=== PATIENT | female | born 1985 | race Caucasian/White ===

== ENCOUNTER 2019-03-27 00:57 | Day surgery (SDC) | payer BC, SELFPAY ==
[2019-03-19 12:09] VITALS: BMI 33.7
[2019-03-27 13:38] VITALS: BP 122/72; PULSE 74; RESP 18; TEMP 36.7; O2SAT 100
[2019-03-27] MEDS: LACTATED RINGERS 1,000 ML 30 ML IV CONT (15:17)
--- NOTE | 2019-03-27 15:58 | WPDANESEPPF ---
Anes - Initial Pre Proc Eval Procedure: Operation Date: 03/27/19 15:30 Proposed Procedures p Debridement Right Breast Wound - Gurpreet Perez MD Date/Time: 03/27/19 15:58 Surgeon: Gurpreet Perez MD Pre Op Diagnosis: Right Breast Chronic Infection Patient Data Age: 33 Gender: F Height: 5 ft 3 in Weight: 83.9 kg Last Vital Signs Temp 36.7 C 03/27/19 13:38 Pulse 74 03/27/19 13:38 Resp 18 03/27/19 13:38 BP 122/72 03/27/19 13:38 Pulse Ox 100 03/27/19 13:38 Allergies Allergy/AdvReac Type Severity Reaction Status Date / Time No Known Allergies Allergy Verified 03/27/19 14:55 Home Medications Medication Instructions Recorded Confirmed Type No Home Medications 02/05/19 03/27/19 History Patient hx anesthesia problems: none Family hx anesthesia problems: none PMFSH Surgical History Surgical History History of right hip replacement 1999, hip plate Family History Family History Unknown Hypertension Allergy Cancer Social History Social History Smoking status: Never smoker Alcohol intake: current Anes - Eval Final PreProcedure Day of Procedure 03/27/19 15:58 Patient weight: obese Heart: regular rate and rhythm Lungs: clear to auscultation Airway: Mallampati scale class 1 Neurological: alert and oriented Last oral intake: >/= 8 hours ASA classification: II Emergent: no Anesthetic plan: proceed Anesthesia type and monitoring: general LMA and standard monitoring Informed Consent: The patient's anesthetic plan and its attendant risks and benefits were discussed with the patient/family/POA. Questions were solicited and answers provided to the satisfaction of the patient/family/POA.
--- NOTE | 2019-03-27 16:18 | WPDHPUPDATE1 ---
History and Physical Update Update Date/Time: 03/27/19 16:18 History and Physical has been reviewed, including an updated exam of the patient. There are NO changes in the patient's condition. Risks, benefits, and alternatives have been discussed and questions answered. Patient agrees to proceed with procedure.
[2019-03-27] MEDS: ceFAZolin 2 GM/D5W 50 ML 2 GM/50 ML BAG IVPB (16:27)
[2019-03-27] MEDS: BUPIVACAINE/EPINEPHRINE 0.5% 30 ML VIAL INFILTRATE (16:29)
--- NOTE | 2019-03-27 16:45 | SUR.OPER ---
Culture given to Kristen in the lab at [id number]
[2019-03-27 17:15] VITALS: BP 112/69; PULSE 95; RESP 14; TEMP 36.8; O2SAT 100
--- NOTE | 2019-03-27 17:25 | SUR.OPER ---
EBL 10ML. LOCAL USED 20ML TOTAL.
[2019-03-27 17:30] VITALS: BP 115/72; PULSE 84; RESP 14; O2SAT 98
--- NOTE | 2019-03-27 17:34 | P.OP_ITS ---
Procedure Note - Detailed Date of procedure: 03/27/19 Pre-op diagnosis: Right Breast Chronic Infection Chronic right breast wound Post-op diagnosis: other (Subareolar inflammatory condition right breast) Procedure performed: Excisional debridement skin and subcutaneous right breast 4 x 2 x 2 cm; incisional biopsy x3 right breast Description of procedure: The patient was taken to surgery and induced into general anesthesia per LMA. The right breast was prepped and draped. There were 2 openings on the right breast. One was at 9:00 a.m. which was the original site of the abscess that had failed to heal. The other was at 11 30 and was still covered but by a thin covering of epithelium. Gently probing this showed a seropurulent pocket beneath. I cultured this for aerobes and anaerobes. I then used a curved, fine-tipped clamp and found a tract from the 9:00 opening. Granulation tissue was removed from the area. This tract went directly to the upper midline opening described previously. Initially, I thought only this tract was the chronic infection keeping the wound from healing. Being concerned that there could be underlying malignancy, I opened the skin at each of the 2 wounds. I did biopsies from the upper wound as well as the lateral wound. These were sent separately. At this point, it seemed there was still quite a bit of inflammatory subcutaneous breast tissue between the 2 wounds. I went ahead and opened the skin between the 2 wounds so that this could be reviewed. In the wound, there was a lot of fibrotic tissue and granulation tissue. I removed and biopsied this, labeling it wound tract. Further reviewing the area, it now appeared clear that the 9:00 a.m. wound opening was much closer to the source of the chronic inflammation or infection. I found additional tracking towards the nipple. There was a lot of granulation tissue and fibrotic tissue there as well. I removed some additional tissue and sent this with the lateral breast biopsy tissue. I removed the granulation tissue. There was still some thick yellowish material which emanated from breast ducts with gentle palpation. There was some fluid that appeared to be either lactational or purulent in nature. This was also cultured. This culture was labeled deep right breast wound. I went on to debride obvious chronic inflammatory tissue. We were in what appeared to be healthy breast tissue throughout the wound at this point. I then used the cautery to achieve hemostasis. I placed a couple of interrupted 3 0 Vicryl sutures to approximate the edge of the areola to the lateral edge of the skin. This was done to maintain some degree of normal breast appearance. The wound was then packed with 1 in iodoform Nu Gauze. It appeared hemostatic. The wound was dressed with fluffs and a surgical bra was placed. The patient was awakened and taken to recovery in good condition. No complications were noted. Sponge and needle counts were correct x2. Anesthesia: GLMA and local (0.5% Marcaine with epinephrine) Surgeon: Gurpreet Perez MD Floral Department Specialist: Roosevelt LESLIE Estimated blood loss (mL): 10 Drains: No Packing: Yes (1 inch iodoform Nu Gauze) Pathology: yes (3 incisional biopsies as noted above) Complications: None Condition: stable Disposition: PACU Findings: Deep-seated inflammatory or infectious condition of the right breast. Seems to emanate in the subareolar region. Biopsies and cultures were taken. Wound was packed open.
[2019-03-27 17:45] VITALS: BP 110/64; PULSE 72; RESP 13; O2SAT 99
[2019-03-27 17:53] VITALS: BP 134/71; PULSE 79; RESP 18
[2019-03-27 18:00] VITALS: BP 126/81; PULSE 90; RESP 18; O2SAT 96
== END 2019-03-27 18:22 | disposition home or self-care (01) ==
PROVIDERS: PCP Physician Assistant; Visit Provider Surgery
PROC: (CPT 19120; principal; 2019-03-27 15:30)
DX: N61.0 Mastitis without abscess (principal); T81.89XA Other complications of procedures, not elsewhere classified, initial encounter
CPT/HCPCS: 19120; 87070; 87075; 87077; 87186; 87205; 88305; J0131; J0690; J1100; J1885; J2250; J2405; J2704; J7120

== ENCOUNTER 2019-04-30 07:56 | Outpatient (RCR) | payer BC, SELFPAY ==
[2019-04-02 10:50] VITALS: BMI 34.2
--- NOTE | 2019-04-02 17:03 | P.PNWOUND_ITS ---
Wound Care Note Date/Time: 04/02/19 17:03 Patient seen in the wound clinic this morning. No complaints or problems in the 48 hour since I saw her in the office. Assessment and Plan Assessment and plan (1) Encounter for surgical aftercare following surgery on the skin and clark bcutaneous tissue: Code(s): Z48.817 - Encounter for surgical aftercare following surgery on the skin and subcutaneous tissue Status: Acute Assessment and Plan: debridement wound looks very good. Granulating and healing. After discussion with wound nurses, will treat with Aquacel Silver rope. Cultures did grow Pseudomonas switch this should treat. 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 (2) Abscess of right breast: Code(s): N61.1 - Abscess of the breast and nipple Status: Resolved Assessment and Plan: Pseudomonas acute infectious mastitis with abscess. Review of Systems Constitutional: Constitutional: Denies chills, Denies fever(s) and Denies night sweats Exam Chest: Breast/axilla inspection: abnormal inspection of the breast ( Right breast wound clean with no signs of purulence. Granulating.)
--- NOTE | 2019-04-09 07:27 | WPDWOUNDNOTE ---
Wound Care Note Date/Time: 04/09/19 07:27 Patient is seen in the wound clinic today in follow-up for severe Pseudomonas infectious mastitis of the right breast. She was last seen 04/02/2019 and has been using Aquacel Silver rope. She is seen now in follow-up. Assessment and Plan Assessment and plan (1) Unspecified open wound of right breast, subsequent encounter: Code(s): S21.001D - Unspecified open wound of right breast, subsequent encounter Status: Chronic Assessment and Plan: Continue silver rope dressing changes daily. Will recheck again in 2 weeks. (2) Abscess of right breast: Code(s): N61.1 - Abscess of the breast and nipple Status: Resolved Review of Systems Review of Systems: All systems reviewed & are unremarkable except as noted in HPI and below Constitutional: Constitutional: Denies chills and Denies fever(s) Exam Chest: Breast/axilla inspection: abnormal inspection of the breast (Wound smaller with minimal tracking. Granulating and healing. Looks good.)
--- NOTE | 2019-04-21 17:40 | WPDWOUNDNOTE ---
Wound Care Note Date/Time: 04/21/19 17:40 I was called to see the patient in the wound clinic today as her wounds were smaller and healing but she was having a lot of tenderness with the lower open wound area. The wounds have been packed with silver rope. Assessment and Plan Assessment and plan (1) Abscess of right breast: Code(s): N61.1 - Abscess of the breast and nipple Status: Resolved (2) Encounter for surgical aftercare following surgery on the skin and subcutaneous tissue: Code(s): Z48.817 - Encounter for surgical aftercare following surgery on the skin and subcutaneous tissue Status: Chronic Assessment and Plan: Breast wound continues to heal well. I think the sensitivity is simply due to some exposed sensory nerves. No sign of recurrent mastitis abscess or infection. We will switch to Mansi dressing changes and see her back a week from . This will be in the wound clinic as well. Exam Chest: Breast/axilla inspection: abnormal inspection of the breast right upper outer other ( Abscess wounds much smaller. Tender but no sign of infection or abscess.)
--- NOTE | 2019-05-28 11:45 | WPDWOUNDNOTE ---
Wound Care Note Date/Time: 04/30/19 11:45 Patient seen in the wound clinic today. Right breast wound continues to improve. She has been applying Mansi to the wound bed. Only a small area on the distal aspect of the wound is still open. The proximal area is completely closed in seems to be well healed. She feels much better and is doing well. Assessment and Plan Assessment and plan (1) Unspecified open wound of right breast, subsequent encounter: Code(s): S21.001D - Unspecified open wound of right breast, subsequent encounter Status: Chronic Assessment and Plan: Looks great. Should be completely healed in 1 week. Applied a Band-Aid to the wound. No further follow-up needed unless problems. (2) Abscess of right breast: Code(s): N61.1 - Abscess of the breast and nipple Status: Resolved Assessment and Plan: Pseudomonas mastitis with abscess (3) Encounter for surgical aftercare following surgery on the skin and subcutaneous tissue: Code(s): Z48.817 - Encounter for surgical aftercare following surgery on the skin and subcutaneous tissue Status: Chronic Assessment and Plan: had extensive surgical debridement of this infiltrating infection. Review of Systems Review of Systems: All systems reviewed & are unremarkable except as noted in HPI and below ( HPI) Exam Chest: Breast/axilla inspection: abnormal inspection of the breast ( proximal area closed, distal area with only small opening, superficial)
== END 2019-06-03 14:56 | disposition home or self-care (01) ==
LOC: ANHWOC 07:56
PROVIDERS: PCP Physician Assistant; Visit Provider Surgery
DX: Z48.817 Encounter for surgical aftercare following surgery on the skin and subcutaneous tissue (principal)
CPT/HCPCS: 99212; 99214; A9270; G0463

== ENCOUNTER 2024-05-07 11:08 | Outpatient (CLI) | payer BC, SELFPAY ==
--- NOTE | ~2024-05-07 | US_ITS ---
Limited Abdominal Sonogram: Real-time sonographic imaging of the right upper quadrant was performed. Clinical History: Right upper quadrant pain Findings: The liver appears normal with no evidence of mass lesion or bile duct dilatation. Main por patrice vein demonstrates normal direction of flow. The gallbladder is well distended, and appears normal with no evidence of gallstone or wall thickening. The common bile duct measures 3 mm. The visualize d pancreas, aorta, and IVC are unremarkable. Impression: No significant abnormality seen. Reviewed, dictated and finalized at location M. Impression: No significant abnormality seen.
== END 2024-05-07 11:09 | disposition home or self-care (01) ==
LOC: GOSHIMG 11:08
PROVIDERS: PCP Physician Assistant; Visit Provider Physician Assistant
DX: R10.11 Right upper quadrant pain (principal)
CPT/HCPCS: 76705